=== PATIENT | male | born 1960 | race Caucasian/White ===

== ENCOUNTER 2021-06-03 19:06 | Emergency (ER) | payer OTHER, SELFPAY ==
[~2021-06-03] VITALS: Ht 167.6 cm; Wt 126.6 kg
[2021-06-03 19:06] VITALS: BP_SYST 113; BP_DIAS 66; BP_DIAS 73
--- NOTE | 2021-06-03 19:06 | NUR ---
ARRIVAL ARRIVED VIA EMS. COUGH, DIARRHEA, SOB, NEAR SYNCOPE EPISODE YESTERDAY.
--- NOTE | 2021-06-03 19:35 | DIREP ---
PROCEDURE:CHEST 1 VIEW COMPARISON:None. INDICATIONS:dizziness FINDINGS: LUNGS/PLEURA:No significant pulmonary parenchymal abnormalities. No effusions. VASCULATURE:Normal. Unremarkable pulmonary vasculature. CARDIAC:Normal. No cardiac silhouette abnormality or cardiomegaly. MEDIASTINUM:Normal. No visible mass or adenopathy. BONES:Normal. No fracture or visible bony lesion. OTHER:Negative. CONCLUSION:No acute airspace disease Dictated by: Jude Dawson DO on 06/03/2021 at 07:33 PM
--- NOTE | 2021-06-03 19:37 | ER.PDOC ---
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 Patient states he got his [employer] vaccine back in September and has had any issues. Patient states that just recently he started feeling increased fatigue, cough that was unrelenting and shortness of breath. Patient denies any fever, no sweating, no sick contacts, no other complaints at this time. Patient has not tried anything for symptoms prior to arrival. Exertion does make him symptomatology worse. Severity: moderate Decreased Ability to Stand: weak Allergies: Coded Allergies: No Known Allergies (Unverified , 06/03/21) Past Medical History Medical History: diabetes, hypertension Surgical History: no surgical history Social History Alcohol Use: none Drug Use: none Review of Systems Nose: congestion Respiratory: cough, shortness of breath All Other Systems: Reviewed and Negative Physical Exam General Appearance: alert, no distress EENT: nml eye inspection, PERRL, no nystagmus, nml ENT inspection, pharynx nml, TM's nml Neck: supple Respiratory: no resp distress, breath sounds nml CVS: reg rate & rhythm, heart sounds.nml Abdomen: non-tender, no organomegaly, no distention Skin: color nml, no rash, warm/dry Extremities: non-tender, nml ROM, no pedal edema Neuro/Psych: nml orientation, nml speech/cognition, nml mood/affect Cranial Nerves: nml as tested, no evidence of acute CVA Cerebellar: nml as tested Sensorimotor: nml motor, nml sensation Results/Orders Results/Orders Orders - EJESIEME,SEAN C DO Cbc With Auto Diff (06/03/21 19:15) Comprehensive Metabolic Panel (06/03/21 19:15) Creatine Kinase (06/03/21 19:15) Creatine Kinase Mb (06/03/21 19:15) Probnp B-Type Restaurant Attendant (06/03/21 19:15) D-Dimer (06/03/21 19:15) Xr Chest 1v (06/03/21 19:15) PT (06/03/21 19:15) Partial Thromboplastin Time. (06/03/21 19:15) Ekg-Routine (06/03/21 19:15) Saline Lock (06/03/21 19:15) Troponin I High Sensitivity (06/03/21 19:15) Venous Blood Gas (06/03/21 19:15) Procalcitonin (06/03/21 19:15) Lactic Acid(Ml) (06/03/21 19:15) Covid19 Antigen Tatianna Danae (06/03/21 19:18) 0.9 % Sodium Chloride (Ns 1000ml) (06/03/21 22:30) Urinalysis (06/03/21 22:07) 0.9 % Sodium Chloride (Ns 1000ml) (06/03/21 22:36) Urine Culture (06/03/21 22:38) Insulin Regular, Human (Humulin R) (06/03/21 23:09) Ceftriaxone Sodium (Rocephin) (06/03/21 23:09) 0.9 % Sodium Chloride (Ns 100ml) (06/03/21 23:15) Ceftriaxone Sodium (Rocephin) (06/03/21 23:15) Insulin Regular, Human (Humulin R) (06/03/21 23:16) Basic Metabolic Panel (06/03/21 23:20) Basic Metabolic Panel (06/04/21 00:43) Vital Signs Date Time Temp Pulse Resp B/P (MAP) Pulse Ox O2 Delivery O2 Flow Rate FiO2 06/03/21 19:40 98.0 71 22 116/68 (84) 96 Room Air 06/03/21 19:06 98.0 75 22 06/03/21 19:06 98.0 75 22 96 06/03/21 19:06 98.0 75 22 113/66 (82) 96 Room Air Administered Medications Medications (Trade) Dose Ordered Sig/[place] Route PRN Reason Start Time Stop Time Status Last Admin Dose Admin Ceftriaxone Sodium 1000 mg/ Sodium Chloride 100 ml @ 100 mls/hr STAT STAT IV 06/03/21 23:09 06/04/21 00:08 DC 06/03/21 23:19 100 MLS/HR Insulin Human Regular (Humulin R) 5 unit STAT STAT IV 06/03/21 23:09 06/03/21 23:11 DC 06/03/21 23:19 5 UNIT Sodium Chloride 1,000 ml @ 1,000 mls/hr Q1H ONCE IV 06/03/21 22:30 06/03/21 23:29 DC 06/03/21 22:36 1,000 MLS/HR Laboratory Tests Test 06/03/21 19:10 06/03/21 19:15 06/03/21 21:20 06/03/21 22:38 SARS-CoV-2 Antigen (Rapid) POSITIVE (NEGATIVE) *A POC Blood Gas Site L HAND O2 Saturation 46.1 (70-75) L Al Test N/A Venous Blood pH 7.428 (7.32-7.43) Venous Blood pCO2 at Patient Temp 29.9 MMHG (41-51) L POC Venous pO2 24.9 MMHG (30-50) L Venous Blood Base Excess -3.5 Venous Blood Temperature 37.0 Blood Gas Total Hemoglobin 16.7 % (12.0-16.0) H Deoxyhemoglobin 53.5 % (0.0-5.0) H Carboxyhemoglobin 0.7 % (0.0-3.9) Methemoglobin 0.1 % (0.00-5.0) Total Oxygen Concentration 10.7 % (13.5-17.5) L FiO2 21 % (20-101) Total Carbon Dioxide 20.2 mmol/L (23-27) L Bicarbonate 19.3 mmol/L (24-28) L White Blood Count 4.5 10^3/uL (4.5-11.0) Red Blood Count 4.58 10^6/uL (4.50-5.90) Hemoglobin 15.0 g/dL (13.9-16.3) Hematocrit 43.3 % (37.0-53.0) Mean Corpuscular Volume 94.5 fL (78-100) Mean Corpuscular Hemoglobin 32.8 pg (26-34) Mean Corpuscular Hemoglobin Concent 34.6 g/dL (33-36.5) Red Cell Distribution Width 11.5 % (11.5-14.5) Platelet Count 169 10^3/uL (150-400) Mean Platelet Volume 9.8 fL (7.8-11.0) Neutrophils (%) (Auto) 83.9 % (41.0-85.0) Lymphocytes (%) (Auto) 10.4 % (24.0-44.0) L Monocytes (%) (Auto) 5.1 % (5.0-12.0) Neutrophils # (Auto) 3.8 10^3/uL (1.8-7.7) Lymphocytes # (Auto) 0.47 10^3/uL1 (1.0-4.8) L Monocytes # (Auto) 0.2 10^3/uL (0.3-0.8) L Absolute Immature Granulocyte (auto 0.02 10^3 u/L (0-2) Absolute Eosinophils (auto) 0.0 10^3/uL (0.0-0.2) Immature Granulocytes % 0.40 % (0.00-0.50) Eosinophils % 0.0 % (0.0-5.0) Basophils % 0.2 % (0.0-0.2) Basophils # 0.0 10^3/uL (0.0-0.1) Prothrombin Time 10.9 SEC (9.6-12.0) Prothrombin Time INR (Non-Therap) 1.0 Activated Partial Thromboplast Time 22.1 SEC (24.67-30.72) D-Dimer 0.78 mg/L (0.19-0.49) *H Sodium Level 130 mmol/L (132-145) L Potassium Level 4.0 mmol/L (3.6-5.2) Chloride Level 93.0 mmol/L (96-109) L Carbon Dioxide Level 23.4 mmol/L (20.0-32) Anion Gap 17.6 Blood Urea Nitrogen 24 mg/dL (7-18) H Creatinine 1.23 mg/dL (0.59-1.40) Estimated GFR () 72.9 (>/=60) Est GFR (CKD-EPI)(Non-Afr English) 60.2 (>/=60) BUN/Creatinine Ratio 19.0 Glucose Level 331 mg/dL (70-110) H Lactic Acid Level 1.8 mmol/L (0.5-1.9) Calcium Level 8.1 mg/dL (8.4-10.5) L Total Bilirubin 0.8 mg/dL (0.2-1.0) Aspartate Amino Transferase (AST) 122 U/L (0-35) H Alanine Aminotransferase (ALT) 146 U/L (12-78) H Alkaline Phosphatase 56 U/L (50-136) Total Creatine Kinase 85 U/L (39-308) Creatine Kinase MB < 0.5 ng/mL (0.5-3.6) L Troponin I High Sensitivity 21 ng/L (0-75) Pro-B-Type Natriuretic Peptide 76 pg/mL (0-125) Total Protein 6.8 g/dL (6.4-8.2) Albumin 2.5 g/dL (3.4-5.0) L Globulin 4.3 Albumin/Globulin Ratio 0.581 Procalcitonin 0.21 ng/mL (0.05-0.5) Urine Collection Type RANDOM Urine Color YELLOW Urine Appearance CLEAR Urine Bilirubin 1+ (NEGATIVE) H Urine Ictotest NEGATIVE (NEGATIVE) Urine Ketones 2+ (NEGATIVE) H Urine Specific [place] 1.020 (1.005-1.030) Urine pH 5.5 (4.5-8.0) Urine Protein 1+ (NEGATIVE) H Urine Urobilinogen 0.2 E.U./dL (0.2) Urine Nitrate NEGATIVE (NEGATIVE) Urine Leukocyte Esterase NEGATIVE (NEGATIVE) Urine Glucose (Auto)(UA) 500 mg/dL (NEGATIVE) H Urine Blood NEGATIVE (NEGATIVE) Urine RBC NONE SEEN RBC/HPF (NONE Urine WBC 0-2 WBC/HPF (0-2) Urine Bacteria FEW (NONE SEEN) H Urine Coarse Granular Casts FEW (NONE SEEN) A Test 06/04/21 00:02 06/04/21 00:08 06/04/21 00:43 POC Glucose 236 (70 - 110) H Sodium Level 131 mmol/L (132-145) L 132 mmol/L (132-145) Potassium Level 5.9 mmol/L (3.6-5.2) H 3.4 mmol/L (3.6-5.2) L Chloride Level 100.0 mmol/L (96-109) 96.0 mmol/L (96-109) Carbon Dioxide Level 17.9 mmol/L (20.0-32) L 22.1 mmol/L (20.0-32) Glucose Level 214 mg/dL (70-110) H 239 mg/dL (70-110) H Blood Urea Nitrogen 23 mg/dL (7-18) H 26 mg/dL (7-18) H Creatinine 0.90 mg/dL (0.59-1.40) 1.20 mg/dL (0.59-1.40) Calcium Level 6.7 mg/dL (8.4-10.5) L 8.0 mg/dL (8.4-10.5) L Anion Gap 19.0 17.3 Estimated GFR () 104.5 (>/=60) 75.0 (>/=60) Est GFR (CKD-EPI)(Non-Afr English) 86.4 (>/=60) 62.0 (>/=60) BUN/Creatinine Ratio 25.0 21.0 ER DEPART Departure Time of Disposition: : Disposition: HOME / SELF CARE / HOMELESS Impression: Primary Impression: Near syncope Additional Impressions: COVID-19 Nausea & vomiting Diarrhea Condition: Stable Patient Instructions: COVID Referrals: DARLINE THURMAN MD PRIMARY CARE PROVIDER Follow up in 3 days for a re-evaluation Additional Instructions: You have been diagnosed with COVID-19. It is imperative that you buy yourself a pulse oximeter to check your home oxygen saturation as well as heart rate. Your return to the ED for any heart rate greater than 100, oxygen saturation less than 92%, respirations greater than 20 breaths/min. You also have diabetes it is imperative that you take all of your home medications and check your glucose daily and to return to the ED for any blood sugar greater than 250 for reevaluation. Duration or Time Spent with Pa: 120 min Problem Qualifiers SEAN REVELES DO Jun 03, 2021 19:37
[2021-06-03 19:40] VITALS: BP 116/68
[2021-06-03 21:28] LABS: BASOPHIL % 0.2 % (0.0-0.2); LYMPHOCYTES # 0.47 10^3/uL1 (1.0-4.8); LYMPHOCYTES % 10.4 % (24.0-44.0); MEAN CORP HGB 32.8 pg (26-34); MONOCYTES # 0.2 10^3/uL (0.3-0.8); MONOCYTES % 5.1 % (5.0-12.0); NEUTROPHIL # 3.8 10^3/uL (1.8-7.7); NEUTROPHILS % 83.9 % (41.0-85.0); PLATELET COUNT 169 10^3/uL (150-400); RED CELL DISTRIBUTION WIDTH 11.5 % (11.5-14.5)
[2021-06-03 21:57] LABS: CARBON DIOXIDE 23.4 mmol/L (20.0-32); GLUCOSE 331 mg/dL (70-110)
[2021-06-03] MEDS ORDERED: NS 1000ML 1,000 ML IV ONE (22:30)
[2021-06-03] MEDS ORDERED: NS 1000ML 1,000 ML ONE (22:36)
[2021-06-03 22:48] LABS: BILIRUBIN,URINE 1+ (NEGATIVE); UROBILINOGEN,URINE 0.2 E.U./dL (0.2)
[2021-06-03] MEDS ORDERED: ROCEPHIN 1,000 MG in NS 100ML 100 ML IV STA (23:09)
[2021-06-03] MEDS ORDERED: HUMULIN R IV STA (23:09)
[2021-06-03] MEDS ORDERED: ROCEPHIN ONE (23:15)
[2021-06-03] MEDS ORDERED: NS 100ML 100 ML IV ONE (23:15)
[2021-06-03] MEDS ORDERED: HUMULIN R ONE (23:16)
[2021-06-04 00:24] LABS: CARBON DIOXIDE 17.9 mmol/L (20.0-32)
[2021-06-04 01:14] LABS: CARBON DIOXIDE 22.1 mmol/L (20.0-32)
[2021-06-04 01:28] VITALS: BP 118/72
--- NOTE | 2021-06-04 08:15 | PCM.EKG ---
[facility] Test Date: 2021-06-04 Test Time: 00:17:39 Pat Name: FAMILIA TRUJILLO [facility]: [id number] Room: Gender: M Cloud Security Architect: : [id number] Requested By: ROSA WORTHY Order Number: [id number] Reading MD: Rosa Worthy Measurements Intervals [place] Rate: 81 P: 62 [place]: 149 QRS: -52 QRSD: 109 T: 1 QT: 371 QTc: 431 Interpretive Statements Sinus rhythm Left anterior fascicular block RSR' in V1 or V2, right VCD or RVH No previous ECG available for comparison Electronically Signed On 06-04-2021 18:28:29 SANDER OPERATOR by Rosa Worthy Please click the below link to view image of tracing.
== END 2021-06-04 01:35 | disposition home or self-care (01) ==
LOC: ER 19:06 → EDBD 19:06 → ER 06-04 01:35
DX: U07.1 COVID-19 (principal); R11.2 Nausea with vomiting, unspecified; R19.7 Diarrhea, unspecified; R55 Syncope and collapse; E11.9 Type 2 diabetes mellitus without complications; I10 Essential (primary) hypertension; Z79.4 Long term (current) use of insulin
CPT/HCPCS: 36415 ×2; 71045; 80048 ×2; 81001; 82550; 82553; 82803; 82948; 83605; 83880; 84145; 84484; 85025; 85379; 85610; 85730; 87086; 87426; 93005; 96361; 96365; 96375; 99285; J0696; J1815; J7030; 80053